=== PATIENT | female | born 1960 | race Caucasian/White ===

== ENCOUNTER 2018-10-20 13:00 | Inpatient (IN) | payer OTHER ==
[~2018-10-20] VITALS: Ht 152.4 cm; Wt 63.0 kg
[2018-10-20 13:07] VITALS: BP 193/115
[2018-10-20 13:40] LABS: ABSOLUTE BASOPHILS 0.1 thou/uL (0.0-0.2); ABSOLUTE EOSINOPHILS 0.2 thou/uL (0.0-0.7); ABSOLUTE LYMPHOCYTES 0.9 thou/uL (0.8-5.3); ABSOLUTE MONOCYTES 0.4 thou/uL (0.0-1.2); ABSOLUTE NEUTROPHILS 7.2 thou/uL (1.6-8.1); BASOPHILS 0.7 %; EOSINOPHILS 2.6 %; HEMATOCRIT 36.6 % (37.0-47.0); HEMOGLOBIN 12.4 gm/dL (12.0-15.0); LYMPHOCYTES 10.7 %; MCH 29.5 pg (26.0-34.0); MCHC 33.9 g/dL (28.0-37.0); MCV 86.9 fL (80.0-100.0); MONOCYTES 4.4 %; MPV 7.4 fl. (7.2-11.1); NUCLEATED RBCS 0 /100WBC; PLATELET COUNT* 379 thou/uL (150-400); POLYS 81.6 %; RBC 4.21 mil/uL (4.20-5.00); RDW-CV 13.9 % (10.5-14.5); WBC 8.8 thou/uL (4.0-11.0)
[2018-10-20 13:48] LABS: ANION GAP 9 mmol/L (7-16); BUN 10 mg/dL (7-18); CALCIUM 10.3 mg/dL (8.5-10.1); CHLORIDE 102 mmol/L (98-107); CO2 27 mmol/L (21-32); CREATININE 0.8 mg/dL (0.6-1.3); GLUCOSE 184 mg/dL (70-99); POTASSIUM 3.6 mmol/L (3.5-5.1); SODIUM 138 mmol/L (136-145)
[2018-10-20 13:58] LABS: ALBUMIN 3.2 g/dL (3.4-5.0); ALKALINE PHOSPHATASE 153 U/L (46-116); SGOT 11 U/L (15-37); SGPT 16 U/L (30-65); TOTAL BILIRUBIN 0.4 mg/dL (<0.1-1.0); TOTAL PROTEIN 7.2 g/dL (6.4-8.2); TROPONIN-I LEVEL <0.06 ng/mL (<0.06)
--- NOTE | 2018-10-20 15:51 | EKG ---
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
[2018-10-20 15:53] VITALS: BP 159/92
[2018-10-20] MEDS ORDERED: METFORMIN HCL500 MG PO (17:00)
[2018-10-20] MEDS ORDERED: PRINIVIL10 MG PO (17:01)
[2018-10-20] MEDS ORDERED: LIPITOR10 MG PO (17:02)
[2018-10-20] MEDS ORDERED: ASPIR 8181 MG PO (17:03)
[2018-10-20] MEDS ORDERED: VENTOLIN HFA 1818 GM INH (17:03)
[2018-10-20] MEDS ORDERED: QVAR REDIHALE10.6 G1 INH (17:04)
[2018-10-20] MEDS ORDERED: VITAMIN D5000 UNIT PO (17:05)
[2018-10-20 19:40] VITALS: BP 144/75
[2018-10-20 23:57] VITALS: BP 134/55
[2018-10-21 05:07] LABS: HEMATOCRIT 34.9 % (37.0-47.0); HEMOGLOBIN 11.7 gm/dL (12.0-15.0); MCH 29.1 pg (26.0-34.0); MCHC 33.4 g/dL (28.0-37.0); MCV 87.1 fL (80.0-100.0); MPV 7.9 fl. (7.2-11.1); NUCLEATED RBCS 0 /100WBC; PLATELET COUNT* 382 thou/uL (150-400); RBC 4.01 mil/uL (4.20-5.00); RDW-CV 14.1 % (10.5-14.5); WBC 8.3 thou/uL (4.0-11.0)
[2018-10-21 05:20] LABS: CALCIUM 9.7 mg/dL (8.5-10.1); CREATININE 0.8 mg/dL (0.6-1.3); POTASSIUM 3.8 mmol/L (3.5-5.1)
[2018-10-21 05:24] VITALS: BP 138/63
[2018-10-21 05:25] VITALS: BP 138/63
[2018-10-21 05:58] LABS: ABSOLUTE LYMPHOCYTES 0.4 thou/uL (0.8-5.3); ABSOLUTE NEUTROPHILS 7.9 thou/uL (1.6-8.1); ANISOCYTOSIS 1+; PLATELET ESTIMATE ADEQUATE; POIKILOCYTOSIS 1+
[2018-10-21 08:32] VITALS: BP 147/77
[2018-10-21 12:00] VITALS: BP 147/77
[2018-10-21 16:00] VITALS: BP 157/87
[2018-10-21 20:00] VITALS: BP 121/56
[2018-10-22] VITALS: BP 124/58; BP 133/63
[2018-10-22 04:00] VITALS: BP 142/76
[2018-10-22 05:30] LABS: ABSOLUTE LYMPHOCYTES 0.7 thou/uL (0.8-5.3); ABSOLUTE MONOCYTES 0.6 thou/uL (0.0-1.2); ABSOLUTE NEUTROPHILS 17.1 thou/uL (1.6-8.1); BASOPHILS 0.1 %; HEMATOCRIT 30.6 % (37.0-47.0); HEMOGLOBIN 10.1 gm/dL (12.0-15.0); LYMPHOCYTES 3.6 %; MCH 28.8 pg (26.0-34.0); MCHC 33.1 g/dL (28.0-37.0); MCV 87.1 fL (80.0-100.0); MONOCYTES 3.4 %; MPV 7.9 fl. (7.2-11.1); NUCLEATED RBCS 0 /100WBC; PLATELET COUNT* 312 thou/uL (150-400); POLYS 92.9 %; RBC 3.51 mil/uL (4.20-5.00); RDW-CV 14.2 % (10.5-14.5); WBC 18.4 thou/uL (4.0-11.0)
[2018-10-22 05:38] LABS: APTT 25.5 Seconds (25.0-31.3); PROTIME 10.5 Seconds (9.20-11.50)
[2018-10-22 05:46] LABS: PHOSPHORUS* 3.5 mg/dL (2.5-4.9)
[2018-10-22 05:56] LABS: ALBUMIN 2.8 g/dL (3.4-5.0); CALCIUM 9.3 mg/dL (8.5-10.1); CREATININE 0.7 mg/dL (0.6-1.3); MAGNESIUM 1.8 mg/dL (1.8-2.4); POTASSIUM 3.4 mmol/L (3.5-5.1); TOTAL BILIRUBIN 0.2 mg/dL (<0.1-1.0); TOTAL PROTEIN 6.2 g/dL (6.4-8.2)
[2018-10-22 08:00] VITALS: BP 157/80
[2018-10-22 12:35] VITALS: BP 178/76
[2018-10-22 14:36] LABS: BF RBC 9977 /mm3; TOTAL CELL COUNT 1055 /mm3
[2018-10-22 14:39] LABS: CLARITY HAZY; TOTAL VOLUME 600 ml
--- NOTE | 2018-10-22 15:03 | CON ---
[address] [address] CONSULTATION Name: QIANA PERAZA Room: [address] IN .R.#: [id number] Admission: 10/20/18 Attend Phys: Preet Martino MD Discharge: Date of : 60 Report #: [id number] THIS REPORT FOR: //name// CC: Preet Martino [facility] physician/PCP DATE OF SERVICE: 10/21/2018 PRIMARY AND REFERRING PHYSICIAN: Preet Martino MD SUBJECTIVE: The patient is a 57-year-old female who moved from [place] and lives in [place] at this point. She was applying for disability for COPD, underwent an x-ray that led to a CT scan at [facility]. I reviewed a report of her CT scan, which showed multiple lymph nodes involving the mediastinal subcarinal area, a small malignant pleural effusion. She has a postobstructive atelectasis involving the left lung. The patient reported shortness of breath; however, no weight loss, no headache, no nausea or abdominal pain. REVIEW OF SYSTEMS: All systems were reviewed. It was negative except the above. PAST MEDICAL HISTORY: Diabetes mellitus, hypertension, dyslipidemia, COPD. PAST SURGICAL HISTORY: None. FAMILY HISTORY: Positive for malignancy; however, the patient is not able to specify, which type. SOCIAL HISTORY: She has been an active smoker since the age of 12 around 1 pack per day. She drinks alcohol occasionally. MEDICATIONS: Per admission list. ALLERGIES: CODEINE/DEMEROL. PHYSICAL EXAMINATION: VITAL SIGNS: Today, temperature 36.8, pulse 70, respirations 17, blood pressure is 147/77, and SpO2 was 97% on room air. GENERAL: The patient was lying in bed. She was not in acute distress. LUNGS: Decreased breathing sounds on the right, almost diminished breathing sounds on the left. HEART: Regular rate and rhythm. S1, S2 within normal limits. ABDOMEN: Soft, nontender, and nondistended. Bowel sounds positive. EXTREMITIES: No edema, no cyanosis, [place] [address] CONSULTATION Name: QIANA PERAZA Room: [address] IN [facility]#: [id number] Admission: 10/20/18 Attend Phys: Preet Martino MD Discharge: Date of : 60 Report #: [id number] LABORATORY DATA: Today, WBC 8.3, hemoglobin is 11.7, platelets 382, creatinine 0.8, and calcium is 9.7. IMAGING: Chest x-ray showed complete opacification of the left lung with a shift of the trachea and mediastinum to the left consistent with atelectatic collapse of the left lung. ASSESSMENT AND PLAN: A 57-year-old female who has been a heavy smoker for more than 45 years, was admitted because of abnormal CT scan and chest x-ray, which showed complete opacification of the left lung due to atelectasis and multiple lymphadenopathy involving the mediastinum and bilateral lung lieberman with a small pleural effusion. The etiology of the process is more consistent of malignancy, most likely lung primary; however, I would like to obtain a tissue biopsy. We will ask IR to evaluate any accessible lesion. In the meantime, we will obtain a CT scan of the abdomen and pelvis, bone scan and to complete staging, we will obtain a brain MRI. Also, I agree with a pulmonary evaluation for possible bronchoscopy. We will follow the patient during hospitalization. <ELECTRONICALLY SIGNED> By: Ana Johansen MD 10/22/18 1503 0942 [id number] Johansen MD /nt
[2018-10-22 15:10] LABS: SOURCE THORACENTESIS
[2018-10-22 15:14] LABS: BF EOSINOPHILS 2 %; BF LYMPHOCYTES 79 %; BF POLYS 19 %; BF TISSUE 27 /100 WBC
[2018-10-22 20:15] VITALS: BP 178/80
[2018-10-23 00:53] VITALS: BP 147/72
[2018-10-23 04:00] VITALS: BP 137/73
[2018-10-23 08:00] VITALS: BP 178/99
--- NOTE | 2018-10-23 11:08 | CON ---
[address] [address] CONSULTATION Name: QIANA PERAZA Room: [address] IN .R.#: [id number] Admission: 10/20/18 Attend Phys: Preet Martino MD Discharge: Date of : 60 Report #: [id number] THIS REPORT FOR: //name// CC: Preet Martino [facility] physician/PCP CONSULT REQUESTED BY: Preet Martino MD INDICATION FOR CONSULTATION: Lung mass/left lung collapse, status post CT scan yesterday which is 10/21/2018. HISTORY OF PRESENT ILLNESS: A 57-year-old female with past medical history includes a history of COPD. The patient is an active smoker. The patient has not been on long-term prednisone, not on long-term oxygen or positive airway pressure therapy at home. The patient does have a longstanding history of shortness of breath. The patient at this time reports that her shortness of breath has worsened over the last several months. She does not report any acute change. It is for this reason as well as the fact that the patient was trying to get disability that she underwent a CT chest. The CT does show collapse of the left lung. CT is also consistent with a central mass. This is the reason for this consultation. The patient does not have any other new complaints. She has some cough and sputum production, which is whitish is at baseline. She does not have chest pain. There are no upper respiratory complaints. There is no swelling of lower extremities or calf pain. The patient answered to the negative for 12 questions for review of systems except as mentioned above. PAST MEDICAL HISTORY: COPD, diabetes, hypertension, hyperlipidemia. SOCIAL HISTORY: Smoker, half a pack a day, has smoked for several decades and smoked more in the past. Occasional alcohol use. No known history of illegal drug use. CURRENT MEDICATIONS: List in [place] reviewed. ALLERGIES: DEMEROL AND CODEINE ARE MENTIONED ALLERGIES. PHYSICAL EXAMINATION: GENERAL: She is alert, awake and oriented, does not appear to be in any distress. VITAL SIGNS: Has a pulse of 91 and a blood pressure of 147/77. She is saturating in the mid 90s. She is not on supplemental oxygen. Respiratory rate is around 16-17. She is afebrile with a temperature of 36.8. HEENT: Head is normocephalic and atraumatic. Pupils are equal and reactive. There is no throat erythema. NECK: Significant for a mobile mass on the right side. This appears to be subcutaneous. CHEST: Breath sounds are bilaterally decreased, [place] [address] CONSULTATION Name: QIANA PERAZA Room: [address] IN ..#: [id number] Admission: 10/20/18 Attend Phys: Preet Martino MD Discharge: Date of : 60 Report #: [id number] side. Expirations are prolonged. I do not hear any added sounds. HEART: Regular. There is no murmur. ABDOMEN: Soft and nontender. LOWER EXTREMITIES: No edema, no calf tenderness. IMAGING: The patient had a CT chest performed at diagnostic imaging yesterday. There is a collapse of the left lung, most of this is secondary to atelectasis consistent with a central mass leading to obstruction in the central airways. There is a small pleural effusion on the left side noted as well. Mass is difficult to visualize due to presence of significant atelectasis; however, I do feel that the CT is consistent with the mass. There is some lymphadenopathy as well. LABORATORY DATA: The patient's CBC as well as chemistries [facility] and these are reviewed. Mild hyperglycemia is noted. Creatinine is normal. ASSESSMENT AND PLAN: 1. Lung mass with dense atelectasis/collapse of left lung/small left-sided pleural effusion. At this time, I agree with continuing to stage the patient's presumed malignancy as is already ordered by the Oncology service. The patient already has had an MRI of the head performed. There is a CT of the abdomen and pelvis planned for this afternoon. I favor that we go ahead and do a CT of the neck as well since most of the patient's chest will be visualized regardless with the CT of the neck and abdomen and pelvis. I decided to go ahead and repeat a CT of the chest as well, although one has been performed already yesterday. I favor that we go ahead and proceed with a thoracentesis from the left pleural effusion. We will also plan on reviewing the CT of the abdomen and pelvis as well as neck. Once performed, see if there are additional lesions, which could potentially be biopsied. If the above measures do not lead to a definite diagnosis, then we will consider a subsequent bronchoscopy. I also recommend that we proceed with a PET scan for further staging as PET scan is only available as an outpatient. I recommend performing the same once the patient is discharged. 2. Chronic obstructive pulmonary disease. I agree with Solu-Medrol as well as nebulized bronchodilators as currently ordered. I will have to be inclined to order more steroids after the current order runs out in a lower dose. The patient would benefit from outpatient PFTs later as well as evaluation by nocturnal pulse oximetry for oxygen while asleep. Smoking cessation is strongly recommended. 3. Pulmonary infiltrates. I do feel that there are infiltrates present, which are not well visualized due to other findings on the CT. Therefore, for now, I agree with Abril, but in the next day or 2 or perhaps be inclined to narrow [address] [address] CONSULTATION Name: QIANA PERAZA Room: [address] IN [facility].#: [id number] Admission: 10/20/18 Attend Phys: Preet Martino MD Discharge: Date of : 60 Report #: [id number] coverage, we will follow and advise. We will plan on antibiotics for about a week though. 4. IV dye exposure. The patient received IV dye yesterday. Will receive more IV dye today. Therefore, we will keep the patient well hydrated and continue IV fluids. 5. History of diabetes. Thanks for this consultation. <ELECTRONICALLY SIGNED> By: Shaun Howell MD 10/23/18 1108 1221 [id number] Howell MD /nt
[2018-10-23] MEDS ORDERED: AUGMENTIN 875-1 EACH PO (13:07)
[2018-10-23] MEDS ORDERED: PROTONIX40 M1 PO (13:08)
[2018-10-23] MEDS ORDERED: VENTOLIN HFA 1818 GM INH (13:09)
[2018-10-23] MEDS ORDERED: PREDNISONE 10 M10 MG PO (13:11)
[2018-10-23 13:12] LABS: BODY FLUID LDH 146 IU/L (()); BODY FLUID PROTEIN 3.2 g/dL (())
[2018-10-23 13:17] VITALS: BP 178/99
[2018-10-23 19:37] LABS: SOURCE THORACENTESIS
--- NOTE | 2018-10-24 14:06 | PATH ---
[address] [address] PATHOLOGY RPT PROCEDURE Name: QIANA PERAZA Room: [address]#: [id number] Admission: 10/20/18 Date of : 60 Discharge: 10/23/18 Report #: [id number] Path Case #: [id number] Note [facility] Accession Number: [id number] TESTS RESULT FLAG UNITS REF RANGE LAB Clinician Provided Cytology Information No. of containers..01 Other (Miscellaneous) Source: LEFT PLEURAL FLUID DIAGNOSIS: 02 LEFT PLEURAL FLUID NEGATIVE FOR MALIGNANT CELLS. MESOTHELIAL CELLS AND FEW INFLAMMATORY CELLS. Signed out by: Rick Silverman MD, Pathologist NPI- [id number] Performed by: Violeta Desai, Maintenance Shop Technician ([facility]) Gross description: 01 35ML, ORANGE, CLOUDY /LCS FLAG LEGEND: L-Low Normal,H-High Normal,LL-Alert Low,HH-Alert High <-Panic Low,>-Panic High,A-Abnormal,AA-Critical Abnormal Performed at: [address] [place] [address] Vkias Robles MD, [address] [place] [address], [place] [address] Rick Silverman MD, [employer] Comment: A courtesy copy of this report has been sent to [employer] Comment: [phone], . [employer] Comment: Report sent to [employer] Comment: Report sent to / DR CADE Spec[facility] Comment: A duplicate report has been generated due to demographic updates. Performed at: [address], [place], [place] [id number] MD Vikas Robles MD Phone: [phone]
== END 2018-10-23 14:39 | disposition home or self-care (01) | DRG 180 ==
LOC: M.ERS 13:00 → M.TBA-ER 14:24 → M.2W 14:24
PROVIDERS: Emergency Medicine Emergency Medical Services; Internal Medicine; Internal Medicine Critical Care Medicine; ADMIT Internal Medicine
PROC: 0W9B3ZZ Drainage of Left Pleural Cavity, Percutaneous Approach (ICD-10-PCS; principal; 2018-10-22)
DX: C34.90 Malignant neoplasm of unspecified part of unspecified bronchus or lung (principal); J18.9 Pneumonia, unspecified organism; J98.11 Atelectasis; J98.19 Other pulmonary collapse; J44.0 Chronic obstructive pulmonary disease with (acute) lower respiratory infection; J91.8 Pleural effusion in other conditions classified elsewhere; I10 Essential (primary) hypertension; E78.00 Pure hypercholesterolemia, unspecified; E78.5 Hyperlipidemia, unspecified; F17.210 Nicotine dependence, cigarettes, uncomplicated; R59.1 Generalized enlarged lymph nodes; Z88.6 Allergy status to analgesic agent; Z88.8 Allergy status to other drugs, medicaments and biological substances; Z79.899 Other long term (current) drug therapy